=== PATIENT | female | born 1990 | race American Indian/Alaskan Native ===

== ENCOUNTER 2016-08-13 09:49 | Outpatient (CLI) | payer MEDICAID | END 2016-08-13 13:55 | disposition home or self-care (01) | LOC: LAB 09:49 → TRG 13:46 → LAB 13:55 | PROVIDERS: ATTEND Obstetrics & Gynecology | DX: O36.0190 Maternal care for anti-D [Rh] antibodies, unspecified trimester, not applicable or unspecified (principal); Z3A.00 Weeks of gestation of pregnancy not specified | CPT/HCPCS: 86850; 86900; 86901; 96372; J2790 ==

== ENCOUNTER 2016-10-07 18:22 | Outpatient (CLI) | payer MEDICAID ==
[2016-10-07] MEDS ORDERED: LACTATED RINGERS 500 ML IV ONE (18:56)
[2016-10-07 19:05] VITALS: BP 124/67
[2016-10-07] MEDS ORDERED: LACTATED RINGERS 1,000 ML IV ONE (19:16)
[2016-10-07 19:36] LABS: Bilirubin,Urine NEG (Negative); Blood,Urine NEG (Negative); Ketones,Urine 20 mg/dL (Negative); Leukocyte Esterase,Urine SM (Negative); Mucus,Urine 1+ /HPF; Nitrite,Urine NEG (Negative); Protein,Urine <15 mg/dL mg/dL (Negative)
[2016-10-07] MEDS ORDERED: ZOFRAN IM ONE (20:49)
[2016-10-07] MEDS ORDERED: TYLENOL PO ONE (20:49)
[2016-10-07] MEDS ORDERED: LACTATED RINGERS 1,000 ML IV SCH (21:00)
--- NOTE | 2016-10-08 08:23 | Ultrasound Report ---
BIOPHYSICAL PROFILE: INDICATION: heart rate variables. COMPARISON: None similar. TECHNIQUE: Transabdominal ultrasound with Doppler interrogation. 2 - breathing movements 2 - movements 2 - posture and tone 2 - Qualitative amniotic fluid volume 8 - TOTAL SCORE OF POSSIBLE 8 Heart Rate (bpm) 145
--- NOTE | 2016-10-08 08:29 | Ultrasound Report ---
OB LIMITED INDICATION: heart rate variables. COMPARISON: None similar during this gestation. TECHNIQUE: Transabdominal grayscale ultrasound with Doppler interrogation. Gestation: [place] Amniotic Fluid: WNL (7-24 cm) ARIEL = 7 cm Heart Rate: 154 BPM
== END 2016-10-07 23:00 | disposition home or self-care (01) ==
LOC: TRG 18:22
PROVIDERS: ATTEND Obstetrics & Gynecology
DX: O47.03 False labor before 37 completed weeks of gestation, third trimester (principal); Z3A.36 36 weeks gestation of pregnancy
CPT/HCPCS: 76815; 76819; 81001; J2405; J7120; 96360; 96361; 96374

== ENCOUNTER 2016-10-12 09:07 | Outpatient (CLI) | payer MEDICAID ==
[2016-10-12 09:31] VITALS: BP 106/65
[2016-10-12] MEDS ORDERED: LACTATED RINGERS 500 ML IV ONE (10:15)
[2016-10-12 11:52] LABS: Bacteria,Urine 1+ /HPF (Negative); Bilirubin,Urine NEG (Negative); Blood,Urine NEG (Negative); Ketones,Urine TR mg/dL (Negative); Leukocyte Esterase,Urine LG (Negative); Mucus,Urine 3+ /HPF; Nitrite,Urine NEG (Negative); Urobilinogen,Urine < 2.0 mg/dL (<2.0)
[2016-10-12] MEDS ORDERED: VISTARIL PO PRN (12:27)
--- NOTE | 2016-10-12 14:12 | Ultrasound Report ---
ULTRASOUND OB LIMITED History: well being Technique: Transabdominal ultrasound with Doppler interrogation. Gestation: Single Position: Cephalic Amniotic Fluid: Normal ARIEL = 7.9 cm Heart Rate: 149 BPM
== END 2016-10-12 13:13 | disposition home or self-care (01) ==
LOC: TRG 09:07
PROVIDERS: ATTEND Obstetrics & Gynecology
DX: O47.1 False labor at or after 37 completed weeks of gestation (principal); Z3A.37 37 weeks gestation of pregnancy
CPT/HCPCS: 59025; 76815; 81001; 96360; J7120; Q0177

== ENCOUNTER 2021-05-21 12:40 | Outpatient (CLI) | payer MEDICAID | END 2021-05-21 16:48 | disposition home or self-care (01) | LOC: LAB 12:40 → APU 16:28 → LAB 16:48 | PROVIDERS: ATTEND Obstetrics & Gynecology | DX: O26.893 Other specified pregnancy related conditions, third trimester (principal); Z67.21 Type B blood, Rh negative; Z3A.29 29 weeks gestation of pregnancy | CPT/HCPCS: 86850; 86900; 86901; 96372; J2790 ==

== ENCOUNTER 2021-06-10 19:54 | Outpatient (CLI) | payer MEDICAID ==
[2021-06-10 20:31] VITALS: BP 123/72
[2021-06-10] MEDS ORDERED: LACTATED RINGERS 1,000 ML IV ONE (20:41)
[2021-06-10 21:46] LABS: Bilirubin,Urine NEG (Negative); Blood,Urine MOD (Negative); Color,Urine Yellow (Yellow); Mucus,Urine 1+ /HPF; Protein,Urine <15 mg/dL mg/dL (Negative); RBC,Urine < 1.0 /HPF (0.0-6.0)
[2021-06-10] MEDS ORDERED: ACETAMINOPHEN 500 MG TAB PO ONE (22:18)
[2021-06-10] MEDS ORDERED: LACTATED RINGERS 1,000 ML ONE (23:48)
--- NOTE | 2021-06-10 23:57 | Ultrasound Report ---
ULTRASOUND OBSTETRIC COMPLETE INDICATION / CLINICAL INFORMATION: ARIEL, EFW, PLACENTA PLACEMENT, CERVICAL LENGTH. Clinical Gestational Age (GA) in weeks, days: 31 weeks 6 days TECHNIQUE: Transabdominal. COMPARISON: None available. FINDINGS: NUMBER: Single PRESENTATION: cephalic PLACENTA: Posterior and free of the os. MATERNAL ADNEXA: No significant abnormality. AMNIOTIC FLUID VOLUME: normal AMNIOTIC FLUID INDEX (ARIEL) in cm (if measured): 13.2 ANATOMY: Examination is not tailored to evaluate detailed anatomy. No gross anatomic abnormality is iden tified. MEASUREMENTS: - Biparietal Diameter = 7.6 cm = 30 weeks 2 days - Head Circumference = 27.5 cm = 30 weeks 1 day - Abdominal Circumference = 26.2 cm = 30 weeks 2 days - Femur Length = 6.1 cm = weeks 4 days - Estimated Weight (in grams, if calculated): 1616 - Heart Rate (beats per minute): 143 ADDITIONAL FINDINGS: Cervix measures 5.8 cm in length. The cervical os appears closed. PERCENTILE ESTIMATED WEIGHT (if calculated): Not calculated AVERAGE ULTRASOUND AGE (AUA) in weeks, days = 30 weeks 4 days IMPRESSION: 1. Single intrauterine with AUA of 30 weeks 4 days. Estimated weight is 1616 g. 2. No significant sonographic abnormality. 3. ARIEL measures 13.2 cm. 4. Posterior placenta is free of the os. 5. Cervix measures 5.8 cm in length. Cervical os appears closed Signer Name: Jarred Swanson MD Signed: 06/10/2021 11:52 PM Workstation Name: [id number]
== END 2021-06-11 01:00 | disposition home or self-care (01) ==
LOC: TRG 19:54 → APU 19:55 → TRG 06-11 01:00
PROVIDERS: ATTEND Obstetrics & Gynecology
DX: O26.853 Spotting complicating pregnancy, third trimester (principal); O26.893 Other specified pregnancy related conditions, third trimester; M54.50 Low back pain, unspecified; Z3A.31 31 weeks gestation of pregnancy
CPT/HCPCS: 59025; 76816; 81001; J7120; 96360

== ENCOUNTER 2021-06-12 19:13 | Outpatient (CLI) | payer MEDICAID ==
[2021-06-12 19:43] VITALS: BP 101/67
[2021-06-12 20:08] LABS: Bilirubin,Urine NEG (Negative); Blood,Urine NEG (Negative); Color,Urine Amber (Yellow); Mucus,Urine 3+ /HPF
--- NOTE | 2021-06-12 21:54 | Vascular Lab Report ---
DUPLEX DOPPLER LOWER EXTREMITY VEINS, LEFT INDICATION / CLINICAL INFORMATION: left leg swelling. TECHNIQUE: Duplex doppler imaging was performed through the veins of the left lower extremity using venous compr ession and other maneuvers. COMPARISON: None available. FINDINGS: LEFT COMMON FEMORAL VEIN: Acute nonocclusive thrombus LEFT FEMORAL VEIN: Acute nonocclusive thrombus in the proximal femoral vein. LEFT POPLITEAL VEIN: Negative. LEFT CALF VEINS: Negative. ADDITIONAL FINDINGS: Thrombus in the greater saphenous vein. IMPRESSION: 1. Acute nonocclusive thrombus in the left common femoral and proximal femoral vein. 2. Thrombus in the distal greater saphenous vein. Findings were indicated to WADE Kerr by phone on 06/12/2021 8:50 PM. Signer Name: Jarred Swanson MD Signed: 06/12/2021 9:50 PM Workstation Name: [id number]
[2021-06-12] MEDS ORDERED: ENOXAPARIN 100 MG/1 ML INJ SUB-Q SCH (23:00)
== END 2021-06-13 00:42 | disposition home or self-care (01) ==
LOC: TRG 19:13 → APU 19:16 → TRG 06-13 00:42
PROVIDERS: ATTEND Obstetrics & Gynecology
DX: O88.213 Thromboembolism in pregnancy, third trimester (principal); I82.412 Acute embolism and thrombosis of left femoral vein; I82.812 Embolism and thrombosis of superficial veins of left lower extremity; Z3A.32 32 weeks gestation of pregnancy
CPT/HCPCS: 59025; 81001; 93971; 96372; J1650

== ENCOUNTER 2021-06-14 16:27 | Observation (INO) | payer MEDICAID ==
[2021-06-14] MEDS ORDERED: miSOPROStol 200 MCG TAB PR PRN (17:01)
[2021-06-14] MEDS ORDERED: ACETAMINOPHEN 325 MG TAB PO PRN (17:01)
[2021-06-14] MEDS ORDERED: BUTORPHANOL 2 MG/1 ML INJ IV PRN ×2 (17:01)
[2021-06-14] MEDS ORDERED: fentaNYL 100 MCG/2 ML INJ IV PRN (17:01)
[2021-06-14] MEDS ORDERED: CARBOPROST TROMETHAMINE 250 MCG/1 ML INJ IM PRN (17:01)
[2021-06-14] MEDS ORDERED: NalbUPHINE 10 MG/1 ML INJ IV PRN (17:01)
[2021-06-14] MEDS ORDERED: NALOXONE 0.4 MG/1 ML INJ IV PRN (17:01)
[2021-06-14] MEDS ORDERED: ePHEDrine SULFATE 50 MG/1 ML INJ IV PRN (17:01)
[2021-06-14] MEDS ORDERED: ONDANSETRON 4 MG/2 ML INJ IV PRN (17:01)
[2021-06-14] MEDS ORDERED: PROMETHAZINE 25 MG RECT SUPP PR PRN (17:01)
[2021-06-14] MEDS ORDERED: LOPERAMIDE 2 MG CAP PO PRN (17:01)
[2021-06-14] MEDS ORDERED: METHYLERGONOVINE MALEATE 0.2 MG/ML VIAL IM PRN (17:01)
[2021-06-14 17:41] LABS: Hematocrit 35.7 % (30.3-42.9); Hemoglobin 11.8 gm/dl (10.1-14.3); Mean Corpuscular HGB Conc 33 % (30-34); Mean Corpuscular Volume 89 fl (79-97); Platelet Count 152 K/mm3 (140-440); Red Blood Count 4.03 M/mm3 (3.65-5.03); Red Cell Distribution Width 13.4 % (13.2-15.2)
[2021-06-14] MEDS ORDERED: LIDOCAINE (2%) 20 MG/1 ML VIAL 20 ML MDV INFILTRATI ONE (18:00)
[2021-06-14] MEDS ORDERED: OXYTOCIN DRIP 30 UNITS/500 ML BAG IV SCH (18:00)
[2021-06-14 20:23] LABS: INR 0.96 (0.87-1.13)
[2021-06-14 20:24] LABS: Partial Thromboplastin Time 35.4 Sec. (24.2-36.6)
[2021-06-14] MEDS ORDERED: MORPHINE 2 MG/1 ML INJ IV ONE ×2 (21:00→22:16)
[2021-06-14] MEDS: LACTATED RINGERS 1,000 ML IV SCH (21:06)
--- NOTE | 2021-06-14 22:18 | History and Physical Report ---
History of Present Illness Date of examination: 06/14/21 Date of admission: 06/14/21 16:28 Chief complaint: left leg pain with know left DVT or left femoral and saphenous vein diagnosed 06/12/21 IUP At 32.3 weeks Past History Past Medical History: deep vein thrombosis Past Surgical History: no surgical history Family/Genetic History: none Social history: no significant social history - Obstetrical History Expected Date of Delivery: 08/06/21 Actual Gestation: 32 Week(s) 3 Day(s) : 8 Para: 3 Medications and Allergies Allergies Allergy/AdvReac Type Severity Reaction Status Date / Time ceftriaxone sodium Allergy Headache Verified 10/21/16 20:14 [From Rocephin] Home Medications Medication Instructions Recorded Confirmed Last Taken Type Enoxaparin 90 mg SQ Q12HR #60 syringe 06/13/21 Unknown Rx Enoxaparin 90 mg SUB-Q Q12HR 30 Days syringe 06/13/21 Unknown Rx Active Meds: Active Medications Acetaminophen (Acetaminophen 325 Mg Tab) 650 mg PO Q4H PRN PRN Reason: Pain, Mild (1-3) Butorphanol Tartrate (Butorphanol 2 Mg/1 Ml Inj) 1 mg IV Q2H PRN PRN Reason: Pain, Moderate(4-6) LABOR PAIN Butorphanol Tartrate (Butorphanol 2 Mg/1 Ml Inj) 2 mg IV Q2H PRN PRN Reason: Pain , Severe (7-10) Carboprost Tromethamine (Carboprost Tromethamine 250 Mcg/1 Ml Inj) 250 mcg IM ONCE PRN PRN Reason: Uterine Bleeding Enoxaparin Sodium (Enoxaparin 100 Mg/1 Ml Inj) 90 mg SUB-Q BID STEPHANIE; Protocol Ephedrine Sulfate (Ephedrine Sulfate 50 Mg/1 Ml Inj) 10 mg IV Q2M PRN PRN Reason: Hypotension Fentanyl (Fentanyl 100 Mcg/2 Ml Inj) 100 mcg IV Q2H PRN PRN Reason: Pain,Severe (7-10) LABOR PAIN Lactated Ringer's (Lactated Ringers) 1,000 mls @ 125 mls/hr IV DIRECT STEPHANIE Last Admin: 06/14/21 21:06 Dose: 125 mls/hr Documented by: Oxytocin/Sodium Chloride (Pitocin/Ns 30 Unit/500ml) 30 units in 500 mls @ 40 mls/hr IV TITR STEPHANIE; Protocol Loperamide HCl (Loperamide 2 Mg Cap) 2 mg PO ONCE PRN PRN Reason: give with Hemabate Methylergonovine Maleate (Methylergonovine Maleate 0.2 Mg/Ml Vial) 0.2 mg IM ONCE PRN PRN Reason: Uterine Bleeding Misoprostol (Misoprostol 200 Mcg Tab) 800 mcg NV ONCE PRN PRN Reason: Uterine Bleeding Nalbuphine HCl (Nalbuphine 10 Mg/1 Ml Inj) 10 mg IV Q2H PRN PRN Reason: Pain, Moderate (4-6) Naloxone HCl (Naloxone 0.4 Mg/1 Ml Inj) 0.1 mg IV Q2MIN PRN PRN Reason: Res Rate </= 8 or 02 SAT < 92% Ondansetron HCl (Ondansetron 4 Mg/2 Ml Inj) 4 mg IV Q8H PRN PRN Reason: Nausea And Vomiting Promethazine HCl (Promethazine 25 Mg Rect Supp) 25 mg NV Q6H PRN PRN Reason: N/V if unable to take po Review of Systems All systems: negative (left leg pain, vaginal discharge) - Vital Signs Vital signs: Vital Signs Pulse BP Pulse Ox 88 112/66 78 L 06/14/21 17:17 06/14/21 17:17 06/14/21 17:17 Temp Pulse Resp BP Pulse Ox 99.8 F H 98 H 118/70 100 06/14/21 20:00 06/14/21 22:13 06/14/21 22:07 06/14/21 22:13 - Physical Exam Breasts: Positive: deferred Cardiovascular: Regular rate, Normal S1 Lungs: Positive: Clear to auscultation Abdomen: Positive: normal appearance, soft, normal bowel sounds Genitourinary (Female): Positive: normal external genitalia, normal perenium Vulva: both: normal Vagina: Positive: normal moisture, other (SSE: no vagfinal discharge, cultures taken and sent to pathology by myself) Uterus: Positive: enlarged Extremities: Positive: tenderness, other (left leg pain and tenderness with limited range of motion, right lower extremety WNL) Deep Tendon Reflex Grade: Normal +2 - Obstetrical FHR: category 1 Cervical Dilatation: 0 (SSE: no avaginal bleeding or discharge) Uterine Contraction Pattern: Absent Results Result Diagrams: 06/14/21 17:26 Abnormal lab results 06/14/21 Range/Units 19:44 Fibrinogen 637 H (211-480) mg/dl All other labs normal. Assessment and Plan left leg DVT with associated pain Plan : IM consult for full w/up for thrombosis Lovenox Morphine Genital culture sent O2 say 100% on room air, must r/out PE send to DVT in well being reassuring, pt in no acute distress, not in labor. Continuous monitoring Maternal/ wel being reassuring at bedside Bernadette Aponte MD
[2021-06-15] MEDS: MORPHINE 4 MG/1 ML INJ IV PRN ×2 (04:27→10:49)
--- NOTE | 2021-06-15 07:10 | Progress Note ---
Subjective - Subjective Date of service: 06/15/21 Interval history: Patient admitted with left lower extremity DVT on therapeutic enoxaparin. Pain controlled overnight with IV morphine. Medicine consulted: Plan for therapeutic enoxaparin no need for further imaging until given patient's asymptomatic status and low suspicion of any pulmonary or cardiac processes. DC home with enoxaparin Tylenol for pain Bernadette Aponte MD Objective - Vital Signs Vital Signs: Vital Signs - 12hr 06/14/21 06/14/21 06/14/21 20:00 20:06 20:11 Temperature 99.8 F H Pulse Rate 94 H 94 H Blood Pressure 123/73 O2 Sat by Pulse 100 100 Oximetry O2 Sat by Pulse Oximetry [ Bilateral] 06/14/21 06/14/21 06/14/21 20:16 20:20 20:21 Temperature Pulse Rate 106 H 89 89 Blood Pressure O2 Sat by Pulse 100 85 100 Oximetry O2 Sat by Pulse Oximetry [ Bilateral] 06/14/21 06/14/21 06/14/21 20:26 20:31 20:36 Temperature Pulse Rate 88 87 88 Blood Pressure 112/71 O2 Sat by Pulse 100 100 Oximetry O2 Sat by Pulse Oximetry [ Bilateral] 06/14/21 06/14/21 06/14/21 20:37 20:42 20:47 Temperature Pulse Rate 90 91 H 95 H Blood Pressure O2 Sat by Pulse 100 93 100 Oximetry O2 Sat by Pulse Oximetry [ Bilateral] 06/14/21 06/14/21 06/14/21 20:52 20:57 21:02 Temperature Pulse Rate 91 H 91 H 101 H Blood Pressure O2 Sat by Pulse 100 100 99 Oximetry O2 Sat by Pulse Oximetry [ Bilateral] 06/14/21 06/14/21 06/14/21 21:07 21:08 21:12 Temperature Pulse Rate 96 H 94 H Blood Pressure 117/71 O2 Sat by Pulse 100 Oximetry O2 Sat by Pulse 100 Oximetry [ Bilateral] 06/14/21 06/14/21 06/14/21 21:13 21:18 21:23 Temperature Pulse Rate 92 H 86 87 Blood Pressure O2 Sat by Pulse 100 100 100 Oximetry O2 Sat by Pulse Oximetry [ Bilateral] 06/14/21 06/14/21 06/14/21 21:28 21:33 21:37 Temperature Pulse Rate 85 92 H 89 Blood Pressure 118/69 O2 Sat by Pulse 100 100 Oximetry O2 Sat by Pulse Oximetry [ Bilateral] 06/14/21 06/14/21 06/14/21 21:38 21:43 21:48 Temperature Pulse Rate 90 89 90 Blood Pressure O2 Sat by Pulse 100 100 100 Oximetry O2 Sat by Pulse Oximetry [ Bilateral] 06/14/21 06/14/21 06/14/21 21:53 21:58 22:03 Temperature Pulse Rate 85 95 H 94 H Blood Pressure O2 Sat by Pulse 100 100 100 Oximetry O2 Sat by Pulse Oximetry [ Bilateral] 06/14/21 06/14/21 06/14/21 22:07 22:08 22:13 Temperature Pulse Rate 97 H 95 H 98 H Blood Pressure 118/70 O2 Sat by Pulse 100 100 Oximetry O2 Sat by Pulse Oximetry [ Bilateral] 06/14/21 06/14/21 06/14/21 22:18 22:19 22:23 Temperature Pulse Rate 103 H 99 H 104 H Blood Pressure O2 Sat by Pulse 100 83 L 100 Oximetry O2 Sat by Pulse Oximetry [ Bilateral] 06/14/21 06/14/21 06/14/21 22:24 22:28 22:29 Temperature Pulse Rate 105 H 105 H 104 H Blood Pressure O2 Sat by Pulse 94 100 72 L Oximetry O2 Sat by Pulse Oximetry [ Bilateral] 06/14/21 06/14/21 06/14/21 22:33 22:38 22:43 Temperature Pulse Rate 100 H 103 H 99 H Blood Pressure O2 Sat by Pulse 100 100 100 Oximetry O2 Sat by Pulse Oximetry [ Bilateral] 06/14/21 06/14/21 06/14/21 22:48 22:53 22:58 Temperature Pulse Rate 92 H 98 H 92 H Blood Pressure O2 Sat by Pulse 100 98 100 Oximetry O2 Sat by Pulse Oximetry [ Bilateral] 06/14/21 06/14/21 06/14/21 23:03 23:08 23:13 Temperature Pulse Rate 85 90 92 H Blood Pressure O2 Sat by Pulse 100 100 100 Oximetry O2 Sat by Pulse Oximetry [ Bilateral] 06/14/21 06/14/21 06/14/21 23:18 23:23 23:28 Temperature Pulse Rate 89 94 H 94 H Blood Pressure O2 Sat by Pulse 100 100 98 Oximetry O2 Sat by Pulse Oximetry [ Bilateral] 06/14/21 06/14/21 06/14/21 23:33 23:38 23:43 Temperature Pulse Rate 91 H 85 97 H Blood Pressure O2 Sat by Pulse 99 100 100 Oximetry O2 Sat by Pulse Oximetry [ Bilateral] 06/14/21 06/14/21 06/14/21 23:48 23:53 23:58 Temperature Pulse Rate 89 87 94 H Blood Pressure O2 Sat by Pulse 99 99 100 Oximetry O2 Sat by Pulse Oximetry [ Bilateral] 06/15/21 06/15/21 06/15/21 00:03 00:08 00:13 Temperature Pulse Rate 95 H 97 H 92 H Blood Pressure O2 Sat by Pulse 99 100 99 Oximetry O2 Sat by Pulse Oximetry [ Bilateral] 06/15/21 06/15/21 06/15/21 00:18 00:23 00:28 Temperature Pulse Rate 104 H 92 H 103 H Blood Pressure O2 Sat by Pulse 100 98 99 Oximetry O2 Sat by Pulse Oximetry [ Bilateral] 06/15/21 06/15/21 06/15/21 00:33 00:38 00:43 Temperature Pulse Rate 95 H 99 H 97 H Blood Pressure O2 Sat by Pulse 99 99 99 Oximetry O2 Sat by Pulse Oximetry [ Bilateral] 06/15/21 06/15/21 06/15/21 00:48 00:53 00:58 Temperature Pulse Rate 97 H 103 H 98 H Blood Pressure O2 Sat by Pulse 99 100 100 Oximetry O2 Sat by Pulse Oximetry [ Bilateral] 06/15/21 06/15/21 06/15/21 01:03 01:08 01:13 Temperature Pulse Rate 98 H 102 H 88 Blood Pressure O2 Sat by Pulse 100 100 100 Oximetry O2 Sat by Pulse Oximetry [ Bilateral] 06/15/21 06/15/21 06/15/21 01:18 01:23 01:28 Temperature Pulse Rate 90 94 H 90 Blood Pressure O2 Sat by Pulse 100 100 100 Oximetry O2 Sat by Pulse Oximetry [ Bilateral] 06/15/21 06/15/21 06/15/21 01:33 01:38 01:48 Temperature Pulse Rate 95 H 92 H 92 H Blood Pressure O2 Sat by Pulse 100 100 100 Oximetry O2 Sat by Pulse Oximetry [ Bilateral] 06/15/21 06/15/21 06/15/21 01:53 01:58 03:53 Temperature Pulse Rate 91 H 94 H 54 L Blood Pressure O2 Sat by Pulse 100 100 91 Oximetry O2 Sat by Pulse Oximetry [ Bilateral] 06/15/21 06/15/21 06/15/21 03:58 04:03 04:08 Temperature Pulse Rate 88 98 H 94 H Blood Pressure O2 Sat by Pulse 96 98 98 Oximetry O2 Sat by Pulse Oximetry [ Bilateral] 06/15/21 06/15/21 06/15/21 04:13 04:18 04:24 Temperature Pulse Rate 93 H 92 H 100 H Blood Pressure O2 Sat by Pulse 99 97 98 Oximetry O2 Sat by Pulse Oximetry [ Bilateral] 06/15/21 06/15/21 06/15/21 04:45 04:48 04:53 Temperature 98.7 F Pulse Rate 94 H 86 97 H Blood Pressure 102/68 O2 Sat by Pulse 97 98 Oximetry O2 Sat by Pulse Oximetry [ Bilateral] 06/15/21 06/15/21 06/15/21 04:58 05:03 05:40 Temperature Pulse Rate 92 H 90 91 H Blood Pressure 104/68 O2 Sat by Pulse 99 98 Oximetry O2 Sat by Pulse Oximetry [ Bilateral] 06/15/21 06/15/21 06/15/21 06:19 06:24 06:29 Temperature Pulse Rate 84 88 86 Blood Pressure O2 Sat by Pulse 99 98 98 Oximetry O2 Sat by Pulse Oximetry [ Bilateral] 06/15/21 06/15/21 06/15/21 06:34 06:39 06:44 Temperature Pulse Rate 87 80 93 H Blood Pressure O2 Sat by Pulse 98 97 98 Oximetry O2 Sat by Pulse Oximetry [ Bilateral] 06/15/21 06/15/21 06/15/21 06:49 07:02 07:07 Temperature Pulse Rate 85 97 H 105 H Blood Pressure O2 Sat by Pulse 100 98 99 Oximetry O2 Sat by Pulse Oximetry [ Bilateral] - Labs Labs: Abnormal Labs 06/14/21 19:44 Fibrinogen 637 H Laboratory Results - last 24 hr 06/14/21 06/14/21 06/14/21 17:26 17:26 19:44 WBC 6.2 RBC 4.03 Hgb 11.8 Hct 35.7 MCV 89 MCH 29 MCHC 33 RDW 13.4 Plt Count 152 PT 13.9 INR 0.96 APTT 35.4 Fibrinogen 637 H Blood Type B NEGATIVE Antibody Screen Positive Antibody Identification Anti-D (Passively Aquired)
--- NOTE | 2021-06-15 07:11 | Discharge Summary ---
Providers - Providers Date of Admission: 06/14/21 16:28 Date of discharge: 06/15/21 Attending physician: XENA MO MD 06/14/21 17:06 Consult to Physician [CONS] Stat Comment: Consulting Provider: TJ ARELLANO Physician Instructions: dx 06/12/21: on enoxaprin Reason For Exam: left dvt Primary care physician: XENA MO MD Hospitalization Reason for admission: other (Left lower extremity DVT) Condition at discharge: Stable Disposition: 01 HOME / SELF CARE / HOMELESS Plan - Provider Discharge Summary Additional instructions: [] Smoking cessation referral if applicable(refer to patient education folder for contact #) [] Refer to [facility] Booklet Call your doctor immediately for: * Fever > 100.5 * Heavy vaginal bleeding ( >1 pad per hour) * Severe persistent headache * Shortness of breath * Reddened, hot, painful area to leg or breast * Drainage or odor from incision. * Keep incision clean and dry at all times and follow doctor's instructions regarding bathing/showering - Follow up plan Follow up: XENA MO MD [Primary Care Provider] - 7 Days
[2021-06-15] MEDS: ENOXAPARIN 100 MG/1 ML INJ SUB-Q SCH ×2 (10:31)
[2021-06-15] MEDS: LACTATED RINGERS 1,000 ML IV SCH (10:38)
[2021-06-15 13:41] VITALS: BP 116/76
== END 2021-06-15 14:30 | disposition home or self-care (01) ==
LOC: APU 16:27 → TRG 16:27 → APU 16:28 → INTOOBSV 16:28 → TRG 18:17 → LD 18:25
PROVIDERS: ADMIT Obstetrics & Gynecology; ATTEND Obstetrics & Gynecology
DX: O22.33 Deep phlebothrombosis in pregnancy, third trimester (principal); Z20.822 Contact with and (suspected) exposure to COVID-19; I82.402 Acute embolism and thrombosis of unspecified deep veins of left lower extremity; Z3A.32 32 weeks gestation of pregnancy; Z86.718 Personal history of other venous thrombosis and embolism
CPT/HCPCS: 36415; 85027; 85384; 85610; 85730; 86850; 86870; 86900; 86901; 96372; 96374; 96376; G0378; J1650; J2270; J7120; U0003

== ENCOUNTER 2021-07-18 14:23 | Outpatient (CLI) | payer MEDICAID ==
[2021-07-18 14:53] VITALS: BP 102/65
[2021-07-18 15:36] LABS: Bacteria,Urine 1+ /HPF (Negative); Bilirubin,Urine NEG (Negative); Blood,Urine NEG (Negative); Color,Urine Yellow (Yellow); Mucus,Urine 2+ /HPF; Protein,Urine <15 mg/dL mg/dL (Negative)
[2021-07-18] MEDS ORDERED: LACTATED RINGERS 500 ML IV ONE (15:46)
--- NOTE | 2021-07-18 18:30 | Ultrasound Report ---
ULTRASOUND OBSTETRIC LIMITED INDICATION / CLINICAL INFORMATION: c/o leaking. Clinical Gestational Age (GA) in weeks, days: 37, 2 TECHNIQUE: Transabdominal. COMPARISON: 06/10/2021 FINDINGS: HEART RATE (beats per minute): 138 AMNIOTIC FLUID INDEX (cm) = 9.1 (normal = 7-24 cm) PRESENTATION: Cephalic. ADDITIONAL FINDINGS: None. IMPRESSION: 1. Amniotic fluid index is within normal limits. Signer Name: Cedric Valle MD Signed: 07/18/2021 6:26 PM Workstation Name: [id number]
== END 2021-07-18 17:56 | disposition home or self-care (01) ==
LOC: TRG 14:23 → APU 14:24 → TRG 17:56
PROVIDERS: ATTEND Obstetrics & Gynecology
DX: O42.90 Premature rupture of membranes, unspecified as to length of time between rupture and onset of labor, unspecified weeks of gestation (principal); Z3A.36 36 weeks gestation of pregnancy
CPT/HCPCS: 36415; 59025; 76815; 81001; 84112

== ENCOUNTER 2021-09-18 10:04 | Outpatient (CLI) | payer MEDICAID ==
--- NOTE | 2021-09-18 12:30 | Vascular Lab Report ---
DUPLEX DOPPLER LOWER EXTREMITY VEINS, LEFT INDICATION / CLINICAL INFORMATION: I82.412 EDEMA OF EXTREMITY, POSSIBLE DVT. TECHNIQUE: Duplex doppler imaging was performed through the veins of the left lower extremity using v enous compression and other maneuvers. COMPARISON: Left lower extremity venous Doppler 06/12/2021. FINDINGS: LEFT COMMON FEMORAL VEIN: Chronic nonocclusive thrombus LEFT FEMORAL VEIN: Chronic nonocclusive thrombus within the proximal femoral vein. LEFT POPLITEAL VEIN: Negative. LEFT CALF VEINS: Negative. ADDITIONAL FINDINGS: Chronic nonocclusive thrombus within the greater saphenous vein. IMPRESSION: 1. Interval improvement from previous exam. There is chronic nonocclusive thrombus within the left co mmon femoral and proximal femoral veins. 2. No evidence of acute DVT. Scribed by: Morelia Thomas RDMS, SANJIVT, KIMBERLEY Scribed: 09/18/2021 11:01 AM I have reviewed the images, agree with this report, and edited this report as needed. Signer Name: Cedric Valle MD Signed: 09/18/2021 12:25 PM Workstation Name: [id number]
== END 2021-09-18 10:05 | disposition home or self-care (01) ==
LOC: VAS 10:04
DX: I82.412 Acute embolism and thrombosis of left femoral vein (principal)

== ENCOUNTER 2021-11-05 13:18 | Outpatient (CLI) | payer MEDICAID ==
--- NOTE | 2021-11-05 15:07 | Vascular Lab Report ---
DUPLEX DOPPLER LOWER EXTREMITY VEINS, LEFT INDICATION / CLINICAL INFORMATION: ACUTE EMBOLISM /THROMBOSIS OF LT.FEMORAL VEIN; EDEMA. TECHNIQUE: Duplex doppler imaging was performed through the veins of the left lower extremity using v enous compression and other maneuvers. COMPARISON: Left lower extremity venous Doppler from 09/18/2021. FINDINGS: LEFT COMMON FEMORAL VEIN: Stable chronic nonocclusive thrombus. LEFT FEMORAL VEIN: Stable chronic nonocclusive thrombus in the proximal femoral veins. LEFT POPLITEAL VEIN: Negative. LEFT CALF VEINS: Negative. ADDITIONAL FINDINGS: Chronic nonocclusive thrombus within the greater saphenous vein. IMPRESSION: 1. No significant interval change. Chronic nonocclusive thrombus in left common femoral and proximal femoral veins. 2. No evidence of acute DVT. Signer Name: Jarred Swanson MD Signed: 11/05/2021 2:52 PM Workstation Name: [id number]
== END 2021-11-05 13:19 | disposition home or self-care (01) ==
LOC: VAS 13:18
DX: I82.412 Acute embolism and thrombosis of left femoral vein (principal)

== ENCOUNTER 2021-11-14 12:43 | Outpatient (CLI) | payer MEDICAID ==
--- NOTE | 2021-11-14 14:44 | Cat Scan Report ---
CTA CHEST WITH CONTRAST INDICATION / CLINICAL INFORMATION: R00.2 PALPITATIONS. TECHNIQUE: Axial CT images were obtained through the chest after injection of IV contrast. 3 plane AL P and/or 3D reconstructions were produced. All CT scans at this location are performed using CT dose reduction for ALARA by means of automated exposure control. COMPARISON: None available. FINDINGS: PULMONARY EMBOLUS: None. THORACIC AORTA: No significant abnormality. HEART: No significant abnormality. CORONARY ARTERY CALCIFICATION: Absent -- None. MEDIASTINUM / MONSTER: No significant abnormality. PLEURA: No pleural effusion. No pneumothorax. LUNGS: No acute air space or interstitial disease. ADDITIONAL FINDINGS: None. UPPER ABDOMEN: No acute findings. SKELETAL STRUCTURES: No significant osseous abnormality. IMPRESSION: 1. No CT evidence for pulmonary embolism. 2. No acute findings. Signer Name: Juan Brandon MD Signed: 11/14/2021 2:40 PM Workstation Name: [id number]
== END 2021-11-14 12:44 | disposition home or self-care (01) ==
LOC: CT 12:43
PROVIDERS: ATTEND Internal Medicine Hematology & Oncology
DX: R00.2 Palpitations (principal)
CPT/HCPCS: 71275; Q9967